=== PATIENT | male | born 1995 | race African-American/Black ===

== ENCOUNTER 2020-11-22 11:42 | Outpatient (REF) | payer OTHER, SELFPAY ==
[2020-11-22 14:00] LABS: Alanine Aminotransferase 43 U/L (0-40); Albumin Level 4.6 g/dL (3.5-5.0); Alkaline Phosphatase 123 U/L (39-117); Anion Gap 13 (12-20); Aspartate Amino Transferase 28 U/L (5-37); Bilirubin Total 0.3 mg/dL (0.0-1.0); Blood Urea Nitrogen 15 mg/dL (9-16); Calcium 9.9 mg/dL (8.4-10.2); Carbon Dioxide 28 mmol/L (22-29); Chloride 105 mmol/L (96-108); Cholesterol 214 mg/dL; Estimated Glomerular Filt Rate > 60; Glucose Fasting 98 mg/dL (60-99); HDL Cholesterol 31 mg/dL; LDL Cholesterol Calculated 159 mg/dl; Potassium 4.2 mmol/l (3.3-5.1); Sodium 142 mmol/L (135-145); Total Protein 7.6 g/dL (6.5-8.0); Triglycerides 120 mg/dL
[2020-11-22 14:22] LABS: Syphilis Screen Nonreactive (Nonreactive)
[2020-11-23 05:02] LABS: HBS Num1 0.77 mIU/mL (0-7.99); HBc Num1 0.16 S/CO (0.00-0.79); HIV AB/AG Nonreactive (Nonreactive); HIV Num 1 0.42 S/CO (0.00-0.99); Hepatitis B Core Antibody Nonreactive (Nonreactive); ~Hepatitis B Surface Antibody NONREACTIVE (Nonreactive)
[2020-11-23 05:10] LABS: HBsAGNum1 0.21 S/CO (0.00-0.99); Hepatitis B Surface Antigen Negative (Negative); ~Hepatitis C Antibody Nonreactive (Nonreactive)
[2020-11-23 14:17] LABS: C. trachomatis RNA TMA NOT DETECTED (NOT DETECTED); N. gonorrhoeae RNA TMA NOT DETECTED (NOT DETECTED)
== END 2020-11-22 11:43 | disposition home or self-care (01) ==
LOC: HO.WFDLDS 11:42
PROVIDERS: Visit Provider Family Medicine
DX: Z00.00 Encounter for general adult medical examination without abnormal findings (principal); Z11.3 Encounter for screening for infections with a predominantly sexual mode of transmission
CPT/HCPCS: 36415; 80053; 80061; 84443; 86704; 86706; 86780; 86803; 87340; 87389; 87491; 87591

== ENCOUNTER 2021-06-05 15:04 | Emergency (ER) | payer OTHER, SELFPAY ==
[2021-06-05 16:53] VITALS: BP 128/69; PULSE 91; RESP 18; TEMP 36.7; O2SAT 98
== END 2021-06-05 17:22 | disposition left against medical advice (07) ==
LOC: HO.ED 17:04
PROVIDERS: Emergency Provider Emergency Medicine
DX: R51.9 Headache, unspecified (principal)

== ENCOUNTER 2021-06-06 10:43 | Outpatient (REF) | payer OTHER, SELFPAY | END 2021-06-06 10:44 | disposition home or self-care (01) | LOC: HO.LAB 10:43 | PROVIDERS: Visit Provider Internal Medicine | DX: Z20.822 Contact with and (suspected) exposure to COVID-19 (principal) | CPT/HCPCS: C9803; U0003; U0005 ==

== ENCOUNTER 2025-04-20 15:55 | Outpatient (AMB) | payer OTHER, SELFPAY ==
[2025-04-20 16:01] VITALS: BP 144/72; PULSE 84; TEMP 37; O2SAT 97; BMI 29.6
--- NOTE | 2025-04-20 16:01 | MHC.OFFWIV ---
Intake Vital Signs 04/20/25 16:01 Height 6 ft 3 in Weight 237 lb BMI 29.6 BP 144/72 H Blood Pressure Location Rt brachial Position Sitting Pulse 84 Pulse Source Pulse Oximeter Temp 98.6 F Temp Source Oral Pulse Oximetry (%) 97 Intake Visit Reasons: [employer] Ear infection?? Patient Tobacco Use Status: Never used Tobacco Allergies No Known Allergies Allergy (Verified 04/20/25 16:09) pollen Allergy (Mild, Uncoded 11/18/20 12:50) Snezzing congestion Do you need a note to return to daycare/school/sports/work: No HPI HPI Comments History of Present Illness Details History - The patient is a 30-year-old male presenting with right ear pain. - Symptoms began with external ear discomfort, progressing to throbbing pain inside the ear. - Possible inciting event includes a cut from a haircut, leading to irritation and infection. - Pain extends to the jaw, causing discomfort when biting down. - No associated dizziness or hearing loss reported. - He denies fever, chills, CP, SOB, STEELE, o r weakness. Physical Exam General: Cooperative, healthy appearing, comfortable and no acute distress Orientation/consciousness: Patient oriented x3 Head: Normal to inspection Ears: Hearing grossly normal bilaterally, external ears normal. TTP of right tragus. Right ear canal is red and swollen, with discharge noted at the auditory canal. TM is bulging, loss of landmarks noted. Nose: Normal external nose present, normal nares present, and no nasal discharge present. Face and sinus: Sinuses nontender to palpation. Mouth: Normal oral and palatal mucosa present and moist mucous membranes noted. Throat: Tonsils normal. Uvula is midline. Posterior oropharynx with erythema and no exudates. Neck: Normal visual inspection, full ROM. No lymphadenopathy noted. Respiratory: Clear to auscultation bilaterally. Normal respiratory effort, able to speak in complete sentences. No respiratory distress, not tachypneic, no tripod positioning and no use of accessory muscles. Cardiovascular: Regular rate and rhythm. Normal S1 and S2 Skin: No rashes or lesions noted. Patient was informed and verbally consented to the use of an ambient scribe for clinic note documentation during this visit [facility] Surgical History (Updated 11/30/20 @ 14:19 by Charley Tobar, JEN, SEAN) No pertinent past surgical history Family History (Updated 11/30/20 @ 14:21 by Charley Tobar, RMA, TUBE HEATER) Father No problems noted. Mother No problems noted. Maternal Grandmother HTN (hypertension) Diabetes mellitus Chronic kidney disease Paternal Grandmother Unknown family medical history Paternal Grandfather Unknown family medical history Sister No problems noted. Social History Patient Tobacco Use Status: Never used Tobacco Review of Systems Const All systems reviewed & are unremarkable except as noted in HPI and below Physical Exam Vital Signs: Last Vital Signs Temp 98.6 F 04/20/25 16:01 Pulse 84 04/20/25 16:01 BP 144/72 H 04/20/25 16:01 Pulse Ox 97 04/20/25 16:01 BMI result Body Mass Index 29.6 Assessment & Plan Assessment & Plan (1) Otitis externa: Code(s): H60.90 - Unspecified otitis externa, unspecified ear Qualifiers: Chronicity: acute Laterality: left Otitis externa type: unspecified type Qualified Code(s): H60.502 - Unspecified acute noninfective otitis externa, left ear Plan Most likely OE vs OM Plan - Prescribe antibiotic ear drops to address the infection. - Prescribe oral antibiotics to manage the infection. - Advise the patient to avoid water exposure to the affected ear and refrain from inserting objects into the ear canal. - Tylenol or motrin as needed. - Avoid q-tips in the ears. Medications: New otwbpyjp-lznisoszr-AX 3.5-10,000-1 mg/mL-unit/mL-% 4 drps otic (ear) right Q8H 10 mL 0RF 10 days amoxicillin-pot clavulanate 875-125 mg 1 tab PO Q12H 14 tabs 0RF Coding Level of Care Code New Pt Level 3 (81999) Diagnoses Acute otitis externa of left ear, unspecified type H60.502 Chronicity: acute Laterality: left Otitis externa type: unspecified type
== END 2025-04-20 16:22 | disposition home or self-care (01) ==
PROVIDERS: Visit Provider Physician Assistant Medical
DX: H60.502 Unspecified acute noninfective otitis externa, left ear (principal)

== ENCOUNTER → 2025-04-20 15:55 | Outpatient (BNVA) | payer OTHER, SELFPAY | PROVIDERS: Visit Provider Physician Assistant Medical | DX: H92.01 Otalgia, right ear (principal); H60.502 Unspecified acute noninfective otitis externa, left ear | CPT/HCPCS: 99202 ==